=== PATIENT | female | born 1955 | race Caucasian/White ===

== ENCOUNTER 2017-06-01 18:40 | Emergency (ER) | payer BC, OTHER ==
[~2017-06-01] VITALS: Ht 172.7 cm; Wt 62.7 kg
[2017-06-01 18:54] VITALS: BP 152/94
== END 2017-06-01 20:40 | disposition home or self-care (01) ==
LOC: ED 20:39
DX: S62.346A Nondisplaced fracture of base of fifth metacarpal bone, right hand, initial encounter for closed fracture (principal); X50.1XXA Overexertion from prolonged static or awkward postures, initial encounter; Y93.89 Activity, other specified; Y92.410 Unspecified street and highway as the place of occurrence of the external cause; Y99.8 Other external cause status
CPT/HCPCS: 29515; 99284